=== PATIENT | female | born 1985 | race Caucasian/White ===

== ENCOUNTER 2016-12-08 14:19 | Emergency (ER) | payer BC ==
[2016-12-08 14:34] VITALS: RESP 18
[2016-12-08] MEDS ORDERED: ONDANSETRON 4 MG/2 ML VIAL IVP STA (15:41)
[2016-12-08] MEDS ORDERED: HYDROmorphone 0.5 MG/0.5 ML SYRINGE IVP STA (15:41)
[2016-12-08] MEDS ORDERED: KETOROLAC 30 MG/ML 1 ML VIAL IVP STA (15:41)
[2016-12-08] MEDS ORDERED: SODIUM CHLORIDE 0.9% 1,000 ML IV STA (15:41)
--- NOTE | 2016-12-08 15:50 | ED ---
Abdominal Pain HPI - General Chief Complaint: Abdominal Pain Stated Complaint: Abd Pain Time Seen by Provider: 12/08/16 15:28 Source: patient, RN notes reviewed, old records reviewed Mode of arrival: ambulatory Limitations: no limitations - History of Present Illness Initial Comments: 31-year-old female presents emergency Department chief complaint of right upper quadrant abdominal pain for the past week. She reports that it became progressively worse over the past few days and now it's sharp pain from the right upper quadrant around her back. Patient states that she feels nauseated but denies any specific vomiting. She states that she also has had increased pelvic pressure when urinating. She denies any dysuria or change in urination color. Patient reports that she's had no fever or chills, denies any changes in bowel habits. She reports that she's had a history of gallbladder she's been has never had a removed. She did have an evaluation when she was at some point. Patient states that her last menstrual period was approximately a week ago. Patient denies any vaginal discharge. - Related Data Home Medications Medication Instructions Recorded Confirmed Cholecalciferol (Vitamin D3) 2,000 unit PO DAILY 12/08/16 12/08/16 [Vitamin D3] Norethindrone-E.estradiol-Iron 1 tab PO DAILY 12/08/16 12/08/16 [Loestrin Fe 1-20 Tablet] Omeprazole 20 mg PO DAILY 12/08/16 12/08/16 traZODone HCL 25 mg PO HS 12/08/16 12/08/16 Previous Rx's Medication Instructions Recorded HYDROcodone/APAP 10-325MG [Fitzgerald 1 tab PO Q6H PRN #15 tab 12/08/16 10-325] Ketorolac [Toradol] 10 mg PO Q6HR #15 tab 12/08/16 Ondansetron Odt [Zofran Odt] 4 mg PO Q8HR PRN #15 tab 12/08/16 Tamsulosin [Flomax] 0.4 mg PO DAILY #10 cap 12/08/16 Allergies Allergy/AdvReac Type Severity Reaction Status Date / Time No Known Allergies Allergy Verified 12/08/16 15:47 Review of Systems ROS Statement: Those systems with pertinent positive or pertinent negative responses have been documented in the HPI. ROS Other: All systems not noted in ROS Statement are negative. Past Medical History Past Medical History: Fibromyalgia Additional Past Medical History / Comment(s): NEUROGENIC SYNCOPE History of Any Multi-Drug Resistant Organisms: None Reported Past Surgical History: Adenoidectomy, Breast Surgery, Orthopedic Surgery Additional Past Surgical History / Comment(s): SINUS SURGERY; BREAST REDUCTION; RIGHT KNEE SURGERY; LEFT HAND SURGERY Past Anesthesia/Blood Transfusion Reactions: No Reported Reaction Past Psychological History: No Psychological Hx Reported Smoking Status: Never smoker Past Alcohol Use History: None Reported Past Drug Use History: None Reported - Past Family History Father Family Medical History: No Reported History General Exam - General Exam Comments Initial Comments: 31-year-old female. No acute distress. Limitations: no limitations General appearance: alert, in no apparent distress Head exam: Present: atraumatic, normocephalic, normal inspection Eye exam: Present: normal appearance, PERRL, EOMI. Absent: scleral icterus, conjunctival injection, periorbital swelling ENT exam: Present: normal exam, normal oropharynx, mucous membranes moist Neck exam: Present: normal inspection. Absent: tenderness, meningismus, lymphadenopathy Respiratory exam: Present: normal lung sounds bilaterally. Absent: respiratory distress, wheezes, rales, rhonchi, stridor Cardiovascular Exam: Present: regular rate, normal rhythm, normal heart sounds. Absent: systolic murmur, diastolic murmur, rubs, gallop, clicks GI/Abdominal exam: Present: soft, tenderness (right upper quadrant tenderness.) , normal bowel sounds. Absent: distended, guarding, rebound, rigid Extremities exam: Present: normal inspection, full ROM, normal capillary refill. Absent: tenderness, pedal edema, joint swelling, calf tenderness Back exam: Present: normal inspection Neurological exam: Present: alert Course Vital Signs 12/08/16 12/08/16 14:30 18:28 Temperature 99.4 F 97.8 F Pulse Rate 101 H 89 Respiratory 18 18 Rate Blood Pressure 101/69 105/57 O2 Sat by Pulse 100 Oximetry Medical Decision Making - Medical Decision Making 31-year-old female presents emergency Department chief complaint of right upper quadrant abdominal pain for the past week. She reports that it became progressively worse over the past few days and now it's sharp pain from the right upper quadrant around her back. Patient states that she feels nauseated but denies any specific vomiting. She states that she also has had increased pelvic pressure when urinating. She denies any dysuria or change in urination color. Patient does have significant RUQ and R flank tenderness. Patient lab work was reveiwed and unremarkable. Patient underwent US gallbladder which shows a normal gallbladder, but a 1 cm renal stone with surround hydronephrosis. Patient underwent CT abodmen and pelvis which shows a 1 cm stone in the right inferior pole. Patient UA shows no signs of blood or infection. Discussed that I believe patient pain is related to the renal stone and possibly moving. Discussed following up with urology. She will be discharged with referral to PCP, urology and pain medication. Discussed also placing the patient on flomax as this may aid in her symptom. Patient agrees to treatment plana nd will comply, return parameters discussed. - Lab Data Result diagrams: 12/08/16 15:44 12/08/16 15:44 Lab Results 12/08/16 12/08/16 12/08/16 Range/Units 15:44 15:44 15:44 WBC 12.7 H (3.8-10.6) k/uL RBC 4.98 (3.80-5.40) m/uL Hgb 15.2 (11.4-16.0) gm/dL Hct 45.3 (34.0-46.0) % MCV 91.0 (80.0-100.0) fL MCH 30.5 (25.0-35.0) pg MCHC 33.5 (31.0-37.0) g/dL RDW 11.5 (11.5-15.5) % Plt Count 217 (150-450) k/uL Neutrophils % 72 % Lymphocytes % 22 % Monocytes % 4 % Eosinophils % 1 % Basophils % 1 % Neutrophils # 9.1 H (1.3-7.7) k/uL Lymphocytes # 2.7 (1.0-4.8) k/uL Monocytes # 0.6 (0-1.0) k/uL Eosinophils # 0.1 (0-0.7) k/uL Basophils # 0.1 (0-0.2) k/uL Sodium 140 (137-145) mmol/L Potassium 3.6 (3.5-5.1) mmol/L Chloride 105 (98-107) mmol/L Carbon Dioxide 27 (22-30) mmol/L Anion Gap 8 mmol/L BUN 10 (7-17) mg/dL Creatinine 0.79 (0.52-1.04) mg/dL Est GFR (MDRD) Af Amer >60 (>60 ml/min/1.73 sqM) Est GFR (MDRD) Non-Af >60 (>60 ml/min/1.73 sqM) Glucose 65 L (74-99) mg/dL Calcium 8.7 (8.4-10.2) mg/dL Total Bilirubin 0.6 (0.2-1.3) mg/dL AST 19 (14-36) U/L ALT 39 (9-52) U/L Alkaline Phosphatase 61 (38-126) U/L Total Protein 6.6 (6.3-8.2) g/dL Albumin 3.7 (3.5-5.0) g/dL Amylase 55 (30-110) U/L Lipase 244 (23-300) U/L Urine Color Yellow Urine Appearance Clear (Clear) Urine pH 5.5 (5.0-8.0) Ur Specific [place] 1.017 (1.001-1.035) Urine Protein Negative (Negative) Urine Glucose (UA) Negative (Negative) Urine Ketones Negative (Negative) Urine Blood Negative (Negative) Urine Nitrite Negative (Negative) Urine Bilirubin Negative (Negative) Urine Urobilinogen <2.0 (<2.0) mg/dL Ur Leukocyte Esterase Negative (Negative) - Radiology Data Radiology results: report reviewed US gallbladder shows that the gallbladder is within nomral limits, however An inferior right kidney pole stone seen measuring 1.0 cm. Mild hydronephrosis is seen. Solid contoured deforming mass. CT abdomen without contrast shows Nonobstructing right-sided nephrolithiasis. 8.4 mm nodule in The posterior anterior polar calyx of the right kidney. No hydronephrosis. Left kidney is unremarkable. Disposition Clinical Impression: Right kidney stone Disposition: HOME SELF-CARE Condition: Good Instructions: Renal Colic (ED) Additional Instructions: Patient was up with urologist. Take medications as prescribed. Return to the emergency department if any alarming signs or symptoms occur. Prescriptions: HYDROcodone/APAP 10-325MG [Fitzgerald 10-325] 1 tab PO Q6H PRN #15 tab PRN Reason: Pain Ketorolac [Toradol] 10 mg PO Q6HR #15 tab Ondansetron Odt [Zofran Odt] 4 mg PO Q8HR PRN #15 tab PRN Reason: Nausea Tamsulosin [Flomax] 0.4 mg PO DAILY #10 cap Referrals: Bernard Salter DO [Primary Care Provider] - 1-2 days Kana Sparks MD [STAFF PHYSICIAN] - 1-2 days Time of Disposition: 18:13
[2016-12-08 15:51] LABS: Appearance,Urine Clear (Clear); Basophils # (A) 0.1 k/uL (0-0.2); Basophils % (A) 1 %; Bilirubin,Urine Negative (Negative); CH 30.8; Eosinophils # (A) 0.1 k/uL (0-0.7); Eosinophils % (A) 1 %; Glucose,Urine (UA) Negative (Negative); HCT 45.3 % (34.0-46.0); HDW 2.51; HGB 15.2 gm/dL (11.4-16.0); Ketones,Urine Negative (Negative); Leukocyte Esterase,Urine Negative (Negative); Luc # (Auto) 0.11; Luc % (Auto) 1; Lymphocytes # (A) 2.7 k/uL (1.0-4.8); Lymphocytes % (A) 22 %; MCH 30.5 pg (25.0-35.0); MCHC 33.5 g/dL (31.0-37.0); Mean Platelet Volume 8.2; Monocytes # (A) 0.6 k/uL (0-1.0); Monocytes % (A) 4 %; Neutrophils # (A) 9.1 k/uL (1.3-7.7); Neutrophils % (A) 72 %; Nitrite,Urine Negative (Negative); PH, Urine 5.5 (5.0-8.0); Protein,Urine Negative (Negative); RBC 4.98 m/uL (3.80-5.40); RDW 11.5 % (11.5-15.5); Specific Gravity,Urine 1.017 (1.001-1.035); UA Billing (MACRO vs. MICRO) CHEM; Urobilinogen,Urine <2.0 mg/dL (<2.0); WBC 12.7 k/uL (3.8-10.6); WBC (Perox) 12.08
[2016-12-08 16:06] LABS: ALT 39 U/L (9-52); AST 19 U/L (14-36); Alkaline Phosphatase 61 U/L (38-126); Amylase 55 U/L (30-110); Anion Gap 8 mmol/L; Blood Urea Nitrogen 10 mg/dL (7-17); Calcium 8.7 mg/dL (8.4-10.2); Carbon Dioxide 27 mmol/L (22-30); Chloride 105 mmol/L (98-107); Glucose 65 mg/dL (74-99); Non-African American GFR(MDRD) >60 (>60 ml/min/1.73 sqM); Potassium 3.6 mmol/L (3.5-5.1); Sodium 140 mmol/L (137-145); Total Bilirubin 0.6 mg/dL (0.2-1.3); Total Protein 6.6 g/dL (6.3-8.2)
--- NOTE | 2016-12-08 16:57 | US ---
EXAMINATION TYPE: US gallbladder DATE OF EXAM: 12/08/2016 COMPARISON: NONE CLINICAL HISTORY: Pain. RUQ pain, back pain, nausea, no vomiting EXAM MEASUREMENTS: Liver Length: 13.4 cm Gallbladder Wall: 0.2 cm CBD: 0.7 cm Right Kidney: 11.0 x 4.3 x 4.8 cm Pancreas: wnl Liver: wnl Gallbladder: wnl Evidence for sonographic Garcia's sign: no CBD: upper limits of normal Right Kidney: inferior pole stone seen = 1.0cm mild hydronephrosis is identified. There is solid con tour deforming mass. IMPRESSION: Right-sided nephrolithiasis due to a 1 cm calculus with mild hydronephrosis.
--- NOTE | 2016-12-08 18:01 | CT ---
EXAMINATION TYPE: CT abdomen pelvis wo con DATE OF EXAM: 12/08/2016 COMPARISON: NONE HISTORY: Right flank pain x [address] DLP: 376.10 mGycm Automated exposure control for dose reduction was used. TECHNIQUE: Helical acquisition of images was performed from the lung bases through the pelvis. FINDINGS: LUNG BASES: No significant abnormality is appreciated. LIVER/GB: No significant abnormality is appreciated. PANCREAS: No significant abnormality is seen. SPLEEN: No significant abnormality is seen. ADRENALS: No significant abnormality is seen. KIDNEYS: There is an 8.4 mm nonobstructing calculus in a posterior interpolar calyx of the right kidn ey. There is no hydronephrosis. The left kidney is unremarkable. FREE AIR: No free air is visualized RETROPERITONEAL ADENOPATHY: None visualized REPRODUCTIVE ORGANS: No significant abnormality is seen, uterus is present. URINARY BLADDER: No significant abnormality is seen. PELVIC ADENOPATHY: None visualized. OSSEOUS STRUCTURES: No significant abnormality is seen. BOWEL: No significant abnormality is seen IMPRESSION: NONOBSTRUCTING RIGHT-SIDED NEPHROLITHIASIS.
[2016-12-08] MEDS ORDERED: HYDROmorphone 1 MG/ML 1 ML SYRINGE IVP STA (18:07)
[2016-12-08 18:29] VITALS: BP 105/57; PULSE 89; TEMP 97.8
== END 2016-12-08 18:35 | disposition home or self-care (01) ==
LOC: EC 14:19
DX: N13.2 Hydronephrosis with renal and ureteral calculous obstruction (principal); Z79.3 Long term (current) use of hormonal contraceptives; Z79.899 Other long term (current) drug therapy
CPT/HCPCS: 99285 ×2; 96374 ×2; 96375 ×3; 96376 ×2; 96361 ×3; 36415; 80053; 82150; 83690; 85025; 81003; 76705; 74176; J2405; J1885; J1170 ×2

== ENCOUNTER → 2017-07-31 | Outpatient (CLI) | payer BC ==
--- NOTE | 2017-07-31 10:53 | US ---
EXAMINATION TYPE: US kidneys/renal and bladder DATE OF EXAM: 07/31/2017 COMPARISON: CT abdomen and pelvis December 08, 2016 CLINICAL HISTORY: N20.0 KIDNEY STONE. Hx of right kidney stone with removal in November 2016. EXAM MEASUREMENTS: Right Kidney: 10.7 x 4.9 x 4.5 cm Left Kidney: 11.1 x 5.1 x 5.4 cm Right Kidney: lower pole echogenic focus, nonshadowing = 0.6 x 0.4 cm. Prominent pyramids. Left Kidney: No hydronephrosis or masses seen. Lower pole obscured by overlying bowel gas Bladder: distended, wnl as visualized Bilateral Jets seen There is no evidence for hydronephrosis at this point in time. There is persistent 6 x 4 mm nonshadow ing hyperechoic focus lower pole level right kidney likely reflects residual or new calculus. No mas ses are identified on images saved. The urinary bladder is anechoic. Bilateral ureteral jets are se en. IMPRESSION: Suspect 6 x 4 mm residual or new calculus lower pole level right kidney. No hydronephrosis is noted b ilaterally. Consider CT correlation.
== END | disposition home or self-care (01) ==
LOC: RADUSWWP 10:08
PROVIDERS: ATTEND Surgery
DX: N20.0 Calculus of kidney (principal)
CPT/HCPCS: 76770

== ENCOUNTER → 2017-09-18 | Outpatient (CLI) | payer BC ==
--- NOTE | 2017-09-18 16:17 | US ---
EXAMINATION TYPE: US kidneys/renal and bladder DATE OF EXAM: 09/18/2017 COMPARISON: NONE CLINICAL HISTORY: N20.0 kidney stone. Hx of stone removal x 1 week ago with stent EXAM MEASUREMENTS: Right Kidney: 11.0 x 4.3 x 4.5 cm Left Kidney: 10.9 x 4.5 x 4.9 cm cm Right Kidney: Prominent pyramids seen. Portion of stent visualized. Medial anechoic lesion seen at hilum - 1.7 x 0.9 cm Left Kidney: Prominent pyramids seen Bladder: distended, stent visualized Bilateral Jets seen IMPRESSION: 1. Cyst in the right renal hilum. Hydronephrosis is not identified.
--- NOTE | 2017-09-18 16:28 | XR ---
EXAMINATION TYPE: XR KUB DATE OF EXAM: 09/18/2017 COMPARISON: 12/20/2016 INDICATION: Kidney stone post lithotripsy TECHNIQUE: Single view abdomen frontal projection FINDINGS: There is a normal bowel gas pattern. Psoas margins are normal. No organomegaly is present. Double pigtail stent is present on the right. Normal bowel gas is present. No mass effect is evident. Calcified renal or ureteral stones are not identified. IMPRESSION: 1. Unremarkable Abdomen
== END | disposition home or self-care (01) ==
LOC: RADXRMAIN 13:20
PROVIDERS: ATTEND Surgery
DX: N28.1 Cyst of kidney, acquired (principal); N20.0 Calculus of kidney
CPT/HCPCS: 74018; 76770

== ENCOUNTER → 2018-01-13 | Outpatient (CLI) | payer BC ==
--- NOTE | 2018-01-13 15:44 | US ---
EXAMINATION TYPE: US kidneys/renal and bladder DATE OF EXAM: 01/13/2018 COMPARISON: 09/18/2017 CLINICAL HISTORY: N20.1 Calculus of ureter. personal history of renal stones EXAM MEASUREMENTS: Right Kidney: 10.4 x 4.6 x 5.4 cm Left Kidney: 11.0 x 6.4 x 5.1 cm Post Void Residual Volume: wnl Right Kidney: seen with small non-shadowing 6mm echogenic foci at mid pole Left Kidney: wnl Bladder: wnl Bilateral Jets seen: yes Normal Post Void Residual: yes Comparison: Inferior pole right renal stone appears better visualized currently IMPRESSION: 1. Nonobstructing Nonshadowing renal stones right kidney.
== END ==
LOC: RADUSWWP 13:58
PROVIDERS: ATTEND Surgery
DX: N20.2 Calculus of kidney with calculus of ureter (principal)
CPT/HCPCS: 76770

== ENCOUNTER → 2018-01-26 | Outpatient (CLI) | payer BC ==
[2018-01-27 06:30] LABS: Carbon Dioxide 23.5 mmol/L (21.6-31.8); Phosphorus 3.3 mg/dL (2.4-5.1); Uric Acid 3.3 mg/dL (2.9-7.7)
== END ==
LOC: LABWHC1 16:49
PROVIDERS: ATTEND Surgery
DX: N20.1 Calculus of ureter (principal)
CPT/HCPCS: 36415; 82310; 82374; 82435; 82565; 83970; 84100; 84550

== ENCOUNTER → 2018-01-29 | Outpatient (CLI) | payer BC ==
[2018-01-29 16:26] LABS: Calcium 9.1 mg/dL (8.7-10.3); Carbon Dioxide 25.6 mmol/L (21.6-31.8); Phosphorus 2.4 mg/dL (2.4-5.1)
[2018-01-30 04:11] LABS: Calcium 24 Hour,Urine 853.6 mg/24Hr (100.0-250.0)
[2018-01-30 04:19] LABS: Creatinine 24 Hour,Urine 2.59 g/24Hr (0.80-1.80)
[2018-01-30 04:50] LABS: Uric Acid 24 Hour,Urine 1.06 g/24Hr (0.25-0.75)
== END | disposition home or self-care (01) ==
LOC: LABWHC1 09:09
PROVIDERS: ATTEND Surgery
DX: N20.1 Calculus of ureter (principal)
CPT/HCPCS: 36415; 81050; 82310; 82340; 82374; 82435; 82507; 82565; 82570; 83945; 83970; 84100; 84550; 84560

== ENCOUNTER 2018-08-23 14:29 | Outpatient (CLI) | payer BC ==
[2018-08-23 15:44] VITALS: BP 125/80; PULSE 93; RESP 18; TEMP 98.8
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
== END 2018-08-23 16:13 | disposition home or self-care (01) ==
LOC: FBPOP 14:29
PROVIDERS: ATTEND Obstetrics & Gynecology
DX: O26.853 Spotting complicating pregnancy, third trimester (principal); Z3A.36 36 weeks gestation of pregnancy
CPT/HCPCS: 59025; 99213

== ENCOUNTER 2018-09-11 18:18 | Inpatient (IN) | payer BC ==
[2018-09-11] MEDS ORDERED: TERBUTALINE 1 MG/ML VIAL SQ PRN (20:09)
[2018-09-11] MEDS ORDERED: CARBOPROST TROMETHAMINE 250 MCG/ML 1 ML AMP IM PRN (20:09)
[2018-09-11] MEDS ORDERED: LIDOCAINE 0.5% (PF) 5 MG/ML (50 ML SDV) SQ PRN (20:09)
[2018-09-11] MEDS ORDERED: METHYLERGONOVINE 0.2 MG/ML 1 ML AMP IM PRN (20:09)
[2018-09-11] MEDS ORDERED: OXYTOCIN 10 UNIT/ML 1 ML VIAL IM PRN (20:09)
[2018-09-11] MEDS: LACTATED RINGERS 1,000 ML IV SCH (20:15)
[2018-09-11] MEDS ORDERED: OXYTOCIN 30 UNITS/500 ML NS 30 UNIT in SALINE 1 500ML.BAG IV SCH (20:15)
[2018-09-11] MEDS ORDERED: SUCCINYLCHOLINE CHLORIDE 100 MG/5 ML SYR IV ONE (20:30)
[2018-09-11] MEDS ORDERED: PROPOFOL 10 MG/ML 20 ML VIAL IV ONE (20:30)
[2018-09-11] MEDS ORDERED: ONDANSETRON 4 MG/2 ML VIAL ONE (20:30)
[2018-09-11] MEDS ORDERED: DEXAMETHASONE SOD PHOS (MDV) 100 MG/10 ML VIAL ONE (20:30)
[2018-09-11] MEDS ORDERED: MIDAZOLAM 2 MG/2 ML VIAL ONE (20:30)
[2018-09-11] MEDS ORDERED: HYDROmorphone (PF) 1 MG/ML ONE (20:30)
[2018-09-11] MEDS ORDERED: METHYLERGONOVINE 0.2 MG/ML 1 ML AMP ONE (20:30)
[2018-09-11] MEDS ORDERED: fentaNYL (PF) 50 MCG/ML 2 ML AMP ONE (20:30)
[2018-09-11] MEDS ORDERED: ceFAZolin 1,000 MG VIAL ONE (20:30)
[2018-09-11] MEDS ORDERED: KETOROLAC 30 MG/ML 1 ML VIAL ONE (20:30)
[2018-09-11] MEDS ORDERED: OXYTOCIN 10 UNIT/ML 1 ML VIAL ONE (20:30)
[2018-09-11 21:15] LABS: Basophils % (A) 0 %; Eosinophils % (A) 0 %; HCT 39.1 % (34.0-46.0); HGB 13.2 gm/dL (11.4-16.0); Lymphocytes # (A) 2.9 k/uL (1.0-4.8); Lymphocytes % (A) 24 %; MCH 29.7 pg (25.0-35.0); MCHC 33.7 g/dL (31.0-37.0); Mean Platelet Volume 10.2; Monocytes # (A) 0.6 k/uL (0-1.0); Monocytes % (A) 5 %; Neutrophils # (A) 8.1 k/uL (1.3-7.7); Neutrophils % (A) 68 %; Platelet Count 163 k/uL (150-450); RBC 4.44 m/uL (3.80-5.40); RDW 14.4 % (11.5-15.5); WBC 11.9 k/uL (3.8-10.6)
--- NOTE | 2018-09-11 21:24 | P.HPOB ---
History of Present Illness H&P Date: 09/11/18 Chief Complaint: Strong, regular uterine contractions This is a 33-year-old white female 3 para 2002 EDC 09/18/2018 at 39 weeks gestation. Patient presented to labor and delivery with abdominal pain, starting in the epigastric region. She was monitored in the triage area, and was found to be in active labor. Cervical change was noted, patient was admitted. She denied fluid leakage or vaginal bleeding. Obstetric history is significant for blood type AB+, rubella status immune. Urine culture, hepatitis B surface antigen, HIV testing, gonorrhea and chlamydia cultures, group B strep cultures all negative. One-hour Glucola 116. Past medical history significant for fibromyalgia, and neurocardiogenic syncope. She also has a history of renal lithiasis. Past surgical history adenoidectomy, bilateral breast reduction, breast cyst aspiration of benign pathology, hand surgery, kidney stone removal, knee surgery, and sinus surgery. Current medications vitamins daily, Prevacid 30 mg before meals as needed, Unisom as needed, vitamin B6, Zyrtec 10 mg capsules as needed. ALLERGIES none known. Family history significant for thyroid disease, breast cancer, fibromyalgia, Crohn's disease. Social history patient is , she is a nonsmoker, she denies alcohol or drug use. On exam this is a pleasant white female, she is 5 foot 5-1/2 inches, approximately 210 pounds, vital signs are stable and she is afebrile. The general physical exam is within normal limits. heart rate is consistent with reactive NST. Artificial amniorrhexis reveals clear fluid. Patient cervix is 6-7 cm dilated, 80% effaced, -2 station, vertex presentation. Impression: 39 week intrauterine , advanced maternal age, active labor. Plan: Close maternal and surveillance. Patient is requesting epidural. Anticipate normal spontaneous vaginal delivery. Review of Systems Constitutional: Reports as per HPI Past Medical History Past Medical History: Fibromyalgia Additional Past Medical History / Comment(s): NEUROGENIC SYNCOPE History of Any Multi-Drug Resistant Organisms: None Reported Past Surgical History: Adenoidectomy, Breast Surgery, Orthopedic Surgery Additional Past Surgical History / Comment(s): SINUS SURGERY; BREAST REDUCTION; RIGHT KNEE SURGERY; LEFT HAND SURGERY Past Anesthesia/Blood Transfusion Reactions: No Reported Reaction Smoking Status: Never smoker - Past Family History Father Family Medical History: No Reported History Medications and Allergies Home Medications Medication Instructions Recorded Confirmed Type Magnesium 1 tab PO DAILY 08/23/18 09/11/18 History Pnv No.95/Ferrous Fum/Folic AC 1 each PO DAILY 08/23/18 09/11/18 History [ Multivitamin Tablet] Ranitidine HCl 1 tab PO DAILY 09/11/18 09/11/18 History Allergies Allergy/AdvReac Type Severity Reaction Status Date / Time No Known Allergies Allergy Verified 09/11/18 18:33 Exam Intake and Output 09/11/18 09/11/18 09/11/18 06:59 14:59 22:59 Other: Weight 92.079 kg See dictation under HPI please Results Result Diagrams: 09/11/18 20:14 Abnormal Lab Results - Last 24 Hours (Table) 09/11/18 Range/Units 20:14 WBC 11.9 H (3.8-10.6) k/uL Neutrophils # 8.1 H (1.3-7.7) k/uL Assessment and Plan Assessment: 39 week intrauterine , active spontaneous labor. Advanced maternal age. Plan: Patient is requesting epidural. Close maternal and surveillance. Anticipate normal spontaneous vaginal delivery. Time with Patient: Less than 30
[2018-09-11] MEDS ORDERED: NALOXONE 0.4 MG/ML 1 ML VIAL IV PRN (21:31)
--- NOTE | 2018-09-11 21:31 | P.OP ---
Date of Procedure: 09/11/18 Preoperative Diagnosis: 39 week intrauterine , advanced maternal age, prolapsed umbilical cord. Postoperative Diagnosis: Same, liveborn female infant, nuchal cord 1, low lying anterior placenta with delivery of fetus through the placenta, true knot in the cord 1. Procedure(s) Performed: Stat primary low transverse section Anesthesia: ARELIS Surgeon: Tamiko Michaels Veterinarian Poultry #1: Junior Coughlin Estimated Blood Loss (ml): 500 IV fluids (ml): 500 Urine output (ml): 200 Pathology: other (Placenta) Condition: stable Disposition: PACU Indications for Procedure: Prolapsed umbilical cord Description of Procedure: At the bedside cervical examination was performed. Patient was noted to be 9 cm dilated, vertex presentation, with prolapsed umbilical cord at 3:00. Patient was instructed to push, and I attempted to have her push past the cord as pressure was placed on the cord in an attempt to slip it over the 's head. This attempt was unsuccessful, therefore the decision was made to proceed with STAT section. Nurse on the bed rode with the patient to the operating room, elevating the head to avoid cord compression. Patient is placed in the do rsal supine position, Ren[place] catheter placed, 2 g of Ancef given. The appropriate timeout is performed to assure proper patient and procedural identification. The abdomen is prepped and draped in usual sterile fashion. A low transverse skin incision is made in this is carried down through the subcutaneous tissue to the fascia. Fascia is isolated, scored, extended bilaterally with curved Whitehead scissors. Peritoneum is next identified and incised, there is no bowel or bladder involvement. Bladder blade is placed over the dome of the bladder. A low transverse uterine incision is made. Upon e ntering the uterine cavity, the placenta was encountered. The incision was made through the placenta, and the infant's head was delivered through the placenta as well. There was a nuchal cord 1, along with a true knot in the umbilical cord. Patient was delivered of a liveborn female infant at 2040 hours. Umbilical cord was doubly clamped and ligated, she was handed to the waiting team where scores of 24 and 8 at one and 5 and 10 minutes were given. weighed 7 lbs. 12 oz. or 3520 g. The uterus is externalized after the placenta is delivered and sent to pathology. The uterus is wiped clean with a sterile sponge to avoid any retained products of conception. Edges of the incision are grasped with Pittman clamps. Uterus is closed in a two- step fashion, first layer running locking, second layer imbricated for excellent reapproximation and hemostasis. Bilateral tubes and ovaries are inspected and noted to be normal. Abdomen is suctioned with suction on guard and the uterus is gently placed back into the abdominal cavity. Bilateral gutters are inspected and cleaned. The peritoneum was allowed to close by secondary intention. The fascia is closed in a running stitch of 0 Vicryl with over ligation in the midline. Subcutaneous tissue is irrigated, noted to be clean and dry. It is reapproximated with a running 2-0 Vicryl. 3-0 Vicryl in a subcuticular manner is used for final skin closure. Steri-Strips and Mastisol are applied to the wound. Patient is brought back to the recovery room in very good condition with stable vital signs including a pulse of 92, respirations 12, blood pressure 98/58. [place] is noted to be draining clear urine upon completion of procedure.
[2018-09-11] MEDS ORDERED: KETOROLAC 30 MG/ML 1 ML VIAL IVP PRN (21:32)
[2018-09-11] MEDS ORDERED: ONDANSETRON 4 MG/2 ML VIAL IVP PRN (21:32)
[2018-09-11] MEDS ORDERED: METOCLOPRAMIDE 5 MG/ML 2 ML VIAL IVP PRN (21:32)
[2018-09-11] MEDS: HYDROmorphone PCA 10 MG/50 ML BAG IV PRN (22:18)
[2018-09-11] MEDS: diphenhydrAMINE 50 MG/ML 1 ML VIAL IVP PRN (23:39)
[2018-09-12] MEDS: LACTATED RINGERS 1,000 ML IV SCH ×2 (01:23→14:29)
[2018-09-12 04:25] VITALS: BMI 32.8
[2018-09-12] MEDS: HYDROmorphone PCA 10 MG/50 ML BAG IV PRN (04:32)
[2018-09-12] MEDS: diphenhydrAMINE 50 MG/ML 1 ML VIAL IVP PRN (06:08)
[2018-09-12 07:59] LABS: Basophils % (A) 0 %; Eosinophils % (A) 0 %; HCT 36.3 % (34.0-46.0); HGB 11.8 gm/dL (11.4-16.0); Lymphocytes # (A) 1.7 k/uL (1.0-4.8); Lymphocytes % (A) 9 %; MCH 29.3 pg (25.0-35.0); MCHC 32.5 g/dL (31.0-37.0); MCV 90.3 fL (80.0-100.0); Mean Platelet Volume 9.7; Monocytes # (A) 0.5 k/uL (0-1.0); Monocytes % (A) 3 %; Neutrophils # (A) 16.7 k/uL (1.3-7.7); Neutrophils % (A) 88 %; Platelet Count 155 k/uL (150-450); RBC 4.02 m/uL (3.80-5.40); RDW 14.2 % (11.5-15.5); WBC 19.1 k/uL (3.8-10.6)
--- NOTE | 2018-09-12 10:02 | P.PN ---
Subjective Progress Note Date: 09/12/18 Principal diagnosis: Postoperative day #1 Slept well. Pain well managed. No complaints. Minimal to moderate lochia rubra. Objective - Vital Signs Vital signs: Vital Signs Temp 98 F 09/12/18 08:00 Pulse 80 09/12/18 08:00 Resp 16 09/12/18 08:00 BP 121/71 09/12/18 08:00 Pulse Ox 99 09/12/18 08:00 Intake & Output 09/11/18 09/12/18 09/12/18 18:59 06:59 18:59 Output Total 550 Balance -550 Weight 92.079 kg Output: Urine 550 Other: Voiding Method Indwelling Catheter - Constitutional General appearance: Present: average body habitus, cooperative - EENT Eyes: Present: PERRLA ENT: Present: hearing grossly normal - Neck Neck: Present: normal ROM Thyroid: bilateral: normal size - Respiratory Respiratory: bilateral: CTA - Cardiovascular Rhythm: regular - Gastrointestinal General gastrointestinal: Present: normal bowel sounds - Integumentary Integumentary Comment(s): Skin incision clean and dry, well approximated, Steri-Strips applied. Fundus firm, midline, symmetric, 18 week size. Integumentary: Present: normal - Neurologic Neurologic: Present: CNII-XII intact - Musculoskeletal Musculoskeletal: Present: gait normal, strength equal bilaterally - Psychiatric Psychiatric: Present: A&O x's 3, appropriate affect, intact judgment & insight - Labs CBC & Chem 7: 09/12/18 07:21 Labs: Abnormal Lab Results - Last 24 Hours (Table) 09/11/18 09/12/18 Range/Units 20:14 07:21 WBC 11.9 H 19.1 H (3.8-10.6) k/uL Neutrophils # 8.1 H 16.7 H (1.3-7.7) k/uL Assessment and Plan Assessment: Doing well postoperative day #1. Hemoglobin stable at 11.8. Plan: Continue care. Advanced diet and activity. Time with Patient: Less than 30
[2018-09-12] MEDS: HYDROcodone/APAP 5-325MG 1 EACH TAB PO PRN ×3 (12:36→21:51)
[2018-09-12] MEDS: IBUPROFEN 600 MG TAB PO PRN ×2 (15:54→23:10)
[2018-09-12] MEDS: SIMETHICONE 80 MG CHEWABLE PO PRN ×2 (20:11→23:10)
[2018-09-12] MEDS: ZOLPIDEM 5 MG TAB PO PRN (23:10)
[2018-09-13] MEDS: HYDROcodone/APAP 5-325MG 1 EACH TAB PO PRN ×3 (02:35→17:01)
[2018-09-13] MEDS: IBUPROFEN 600 MG TAB PO PRN ×3 (05:41→20:10)
[2018-09-13] MEDS: SIMETHICONE 80 MG CHEWABLE PO PRN ×3 (08:15→20:10)
--- NOTE | 2018-09-13 10:21 | P.PN ---
Subjective Progress Note Date: 09/13/18 Principal diagnosis: Postoperative day #2, doing well. Positive flatus. Urinating and ambulating without difficulties. Pain well controlled. Objective - Vital Signs Vital signs: Vital Signs Temp 98.5 F 09/12/18 23:53 Pulse 80 09/12/18 23:53 Resp 14 09/12/18 23:53 BP 116/66 09/12/18 23:53 Pulse Ox 100 09/12/18 23:53 Intake & Output 09/12/18 09/13/18 09/13/18 18:59 06:59 18:59 Output Total 300 Balance -300 Output: Urine 300 - Constitutional General appearance: Present: average body habitus, cooperative - EENT Eyes: Present: PERRLA ENT: Present: hearing grossly normal - Neck Thyroid: bilateral: normal size - Respiratory Respiratory: bilateral: CTA - Cardiovascular Rhythm: regular - Gastrointestinal Gastrointestinal Comment(s): Incision clean and dry, intact, Steri-Strips applied. Uterus firm, midline, symmetric, mobile, nontender, 18 week size General gastrointestinal: Present: normal bowel sounds - Integumentary Integumentary: Present: normal, normal turgor - Neurologic Neurologic: Present: CNII-XII intact - Musculoskeletal Musculoskeletal: Present: gait normal, strength equal bilaterally - Psychiatric Psychiatric: Present: A&O x's 3, appropriate affect, intact judgment & insight - Labs CBC & Chem 7: 09/12/18 07:21 Assessment and Plan Assessment: Doing well postoperative day #2 Plan: Continue postoperative care, likely discharge home tomorrow. Time with Patient: Less than 30
[2018-09-13] MEDS: SENNOSIDES-DOCUSATE SODIUM 1 EACH TAB PO SCH (20:22)
[2018-09-13] MEDS: ZOLPIDEM 5 MG TAB PO PRN (22:23)
[2018-09-14] MEDS: HYDROcodone/APAP 5-325MG 1 EACH TAB PO PRN ×4 (00:37→22:50)
[2018-09-14] MEDS: IBUPROFEN 600 MG TAB PO PRN ×3 (06:24→19:55)
--- NOTE | 2018-09-14 08:39 | P.PNOBGPC ---
Subjective - Subjective Patient reports: Reports appetite normal, Reports voiding normally, Reports pain well controlled, Reports ambulating normally : doing well, in NICU Objective - Vital Signs Latest vital signs: Vital Signs Temp Pulse Resp BP Pulse Ox 09/14/18 00:00 98.5 F 83 18 123/75 100 09/13/18 16:00 99.1 F 88 18 122/74 99 - Exam Extremities: Present: normal Abdomen: Present: normal appearance, soft. Absent: distention, tenderness Incision: Present: normal, dry, intact Uterus: Present: normal, firm (The uterine fundus is tonic and nontender just below the umbilicus.) Assessment and Plan (1) S/P section Current Visit: Yes Status: Acute Code(s): Z98.891 - HISTORY OF UTERINE SCAR FROM PREVIOUS SURGERY SNOMED Code(s): 417443985 Plan: Continue routine care as the remains and special care nursery for ongoing observation. I would anticipate discharge home tomorrow regardless of status and assuming no maternal complications. I strongly encouraged continued ambulation in the hallways routinely.
[2018-09-14] MEDS: SENNOSIDES-DOCUSATE SODIUM 1 EACH TAB PO SCH (09:01)
--- NOTE | 2018-09-14 09:43 | XR ---
Abdomen HISTORY: On confirmed surgical count Frontal view of the abdomen on 2 images Correlation to prior exam 09/18/2017 Double-J stent on the right has been removed. Pubic symphysis shows some mild diastases. No radiopaqu e foreign body. Lung bases are clear. No evident bowel obstruction or pneumoperitoneum. IMPRESSION: No radiopaque foreign body.
[2018-09-15] MEDS: SENNOSIDES-DOCUSATE SODIUM 1 EACH TAB PO SCH ×2 (04:12→08:00)
[2018-09-15] MEDS: HYDROcodone/APAP 5-325MG 1 EACH TAB PO PRN ×2 (04:18→15:01)
--- NOTE | 2018-09-15 08:41 | P.DS ---
Providers Date of admission: 09/11/18 20:07 Expected date of discharge: 09/15/18 Attending physician: Martin Lepe Primary care physician: Martin Lepe - Discharge Diagnosis(es) (1) S/P section Current Visit: Yes Status: Acute Hospital Course: The patient is a 33-year-old 3 para 2001 admitted to the hospital in early labor with all signs reassuring. She began making fairly rapid progress and progressed to approximately 9 cm at which time she underwent artificial rupture of membranes and had a significant cord prolapse into the vagina. She was unable to push past the small amount of cervix that remained and was taken the operating room emergently where she underwent emergency primary low- transverse section was delivered of a viable 7 lbs. 12 oz. baby girl with Apgars of 2 at 1 minute for at 5 minutes and 8 at 10 minutes. Her postoperative course was unremarkable with vital signs remaining stable and her temperature was afebrile throughout. She was deemed stable for discharge on postoperative day #4 as the infant remained in the hospital and still remains in the hospital for prophylactic treatment for possible aspiration pneumonia. She was discharged to follow-up in the office in 2 weeks for an incision check and 6 weeks routinely. Discharge instructions included calling for any significantly increased bleeding or foul-smelling lochia, significantly increased fever abdominal pain, perineal complaints, breast complaints, incisional complaints, or anything else that concerned her. She is additionally instructed to have nothing in the vagina for at least 6 weeks time to include intercourse and to abstain from any heavy lifting over the same period of time. She was last instructed to do no driving until off of all pain medications or 2 weeks' time, whichever came first. She understood all of her instructions and agrees to follow up as noted above. Discharge medications included a prescription for Tylenol No. 3, 1-2 by mouth every 6 hours when necessary pain, #20 dispensed with no refills. She was otherwise to use [id number] analgesic pain medications as needed. Maternal blood type is AB+ and rubella status is immune. Discharge hemoglobin and hematocrit were 11.8 and 36.3 respectively. Procedures: #1. Artificial rupture of membranes #2. Emergency primary low-transverse section Patient Condition at Discharge: Good Plan - Discharge Summary New Discharge Prescriptions: No Action Pnv No.95/Ferrous Fum/Folic AC [ Multivitamin Tablet] 1 each PO DAILY Magnesium 1 tab PO DAILY Ranitidine HCl 1 tab PO DAILY Discharge Medication List Magnesium 1 tab PO DAILY 08/23/18 [History] Pnv No.95/Ferrous Fum/Folic AC [ Multivitamin Tablet] 1 each PO DAILY 08/23/18 [History] Ranitidine HCl 1 tab PO DAILY 09/11/18 [History] Follow up Appointment(s)/Referral(s): Martin Lepe MD [Primary Care Provider] - 2 Weeks Discharge Disposition: HOME SELF-CARE
[2018-09-15] MEDS: IBUPROFEN 600 MG TAB PO PRN ×2 (11:12→18:01)
[2018-09-15 12:50] VITALS: BP 124/75; PULSE 73; RESP 18; TEMP 98.9
== END 2018-09-15 18:15 | disposition home or self-care (01) | DRG 787 ==
LOC: FBPOP 18:18 → 4FBP 20:07
PROVIDERS: ADMIT Obstetrics & Gynecology; ATTEND Obstetrics & Gynecology
PROC: 10D00Z1 Extraction of Products of Conception, Low, Open Approach (ICD-10-PCS; principal; 2018-09-11 21:30)
DX: O69.0XX0 Labor and delivery complicated by prolapse of cord, not applicable or unspecified (principal); O44.43 Low lying placenta NOS or without hemorrhage, third trimester; O69.2XX0 Labor and delivery complicated by other cord entanglement, with compression, not applicable or unspecified; O69.81X0 Labor and delivery complicated by cord around neck, without compression, not applicable or unspecified; O99.89 Other specified diseases and conditions complicating pregnancy, childbirth and the puerperium; M79.7 Fibromyalgia; Z37.0 Single live birth; Z3A.39 39 weeks gestation of pregnancy; Z87.442 Personal history of urinary calculi; Z80.3 Family history of malignant neoplasm of breast; Z83.49 Family history of other endocrine, nutritional and metabolic diseases; Z83.79 Family history of other diseases of the digestive system; Z82.69 Family history of other diseases of the musculoskeletal system and connective tissue
CPT/HCPCS: 59025; 74018; 82803; 85025; 86850; 86900; 86901; 88307; 99213

== ENCOUNTER → 2018-11-10 | Outpatient (CLI) | payer BC ==
--- NOTE | 2018-11-11 04:33 | CT ---
EXAMINATION TYPE: CT abdomen pelvis wo con DATE OF EXAM: 11/10/2018 COMPARISON: 12/08/2016 and renal ultrasound 01/13/2018 HISTORY: 33-year-old female Follow up abnormal US showing probable renal stones. CT DLP: 890 mGycm. Automated exposure control for dose reduction was used. TECHNIQUE: Contiguous axial scanning of the abdomen and pelvis without IV contrast. Coronal and sagit suman reconstructions performed. FINDINGS: Pectus excavatum. Heart normal size without pericardial effusion. Lung bases clear without pleural ef fusion. Noncontrast appearance of the liver, gallbladder, adrenal glands, left kidney, spleen, and pancreas s how no gross abnormality. Lack of IV contrast limits assessment of the solid abdominal viscera. A couple punctate 2 to 3 mm calculi are present in the right kidney. The previously seen larger 8 mm calculus on 12/08/2016 is no longer identified. No hydronephrosis. No dilated small bowel, free fluid, or free air. Scattered nonenlarged mesenteric lymph nodes are noted. Cecum hangs low in the anterior pelvis. Appendix not clearly identified. Moderate overall stool burde n. No pericolonic inflammatory change. Bladder not distended. Uterus is anteverted. The region of both ovaries are visualized. Pelvic phlebo liths. A tampon is in place obliqued towards the left. Suspect a scar. No abnormal fluid co llection in the pelvis. Bones: No osseous destructive process. IMPRESSION: 1. A couple punctate 2 to 3 mm calculi within the right kidney. No hydronephrosis. 2. Moderate stool burden.
== END | disposition home or self-care (01) ==
LOC: RADCTMAIN 13:20
PROVIDERS: ATTEND Surgery
DX: N20.0 Calculus of kidney (principal)
CPT/HCPCS: 74176

== ENCOUNTER → 2019-12-24 | Outpatient (CLI) | payer BC ==
--- NOTE | 2019-12-25 15:50 | US ---
EXAMINATION TYPE: US kidneys/renal and bladder DATE OF EXAM: 12/24/2019 COMPARISON: CT abdomen pelvis 11/10/2018 CLINICAL HISTORY: N20.0 Calculus of kidney. History of kidney stones EXAM MEASUREMENTS: Right Kidney: 10.3 x 4.3 x 4.8 cm Left Kidney: 10.7 x 4.8 x 4.3 cm Right Kidney: no evidence of hydronephrosis Left Kidney: no evidence of hydronephrosis Bladder: appears wnl Bilateral Jets seen: yes There is no evidence for hydronephrosis at this point in time. No nephrolithiasis is seen. No david s are identified. The urinary bladder is anechoic. Bilateral ureteral jets are seen. IMPRESSION: No nephrolithiasis seen.
== END | disposition home or self-care (01) ==
LOC: RADUSWWP 16:11
PROVIDERS: ATTEND Family Medicine
DX: N20.0 Calculus of kidney (principal)
CPT/HCPCS: 76770

== ENCOUNTER → 2021-03-16 | Outpatient (CLI) | payer BC ==
--- NOTE | 2021-03-19 11:11 | MM ---
Reason for exam: screening (asymptomatic). Last mammogram was performed 8 years and 2 months ago. History: Family history of breast cancer in maternal grandfather at age 50 and breast cancer in paternal grandmother at age 60. Benign left breast aspiration of the left breast, January 21, 2013. Reductions of both breasts, 2001. Physical Findings: A clinical breast exam by your physician is recommended on an annual basis and results should be correlated with mammographic findings. MG Screening Mammo w CAD Bilateral CC and MLO view(s) were taken. Prior study comparison: January 21, 2013, left breast digital mammogram. January 13, 2013, CAD bilateral diagnostic mammogram. There are scattered fibroglandular densities. There is chronic nodularity in the left breast centrally though smaller now. Stable anterior superior right MLO asymmetric density. No significant changes when compared with prior studies. ASSESSMENT: Benign, BI-RAD 2 RECOMMENDATION: Routine screening mammogram of both breasts in 1 year.
== END | disposition home or self-care (01) ==
LOC: RADMAMWWP 14:18
PROVIDERS: ATTEND Obstetrics & Gynecology
DX: Z12.31 Encounter for screening mammogram for malignant neoplasm of breast (principal); Z80.3 Family history of malignant neoplasm of breast
CPT/HCPCS: 77067

== ENCOUNTER → 2022-07-29 | Outpatient (CLI) | payer BC ==
--- NOTE | 2022-07-30 12:05 | CA ---
Transthoracic Echo Report Name: Tamiko Baer Age: 37 Gender: F : 1985 Exam Date: 07/29/2022 14:32 Exam Location: [facility] Ht (in): 66 Wt (lb): 180 Ordering Physician: Bernard Salter DO Attending/Referring Phys: Programmer [employer] Marleen Lopez RDCS Procedure CPT: Indications: R06.02 R21 M79.604 M79.605 Cardiac Hx: Technical Quality: Good Contrast 1: Total Dose (mL): Contrast 2: Total Dose (mL): MEASUREMENTS (Male / Female) Normal Values 2D ECHO LV Diastolic Diameter PLAX 4.5 cm 4.2 - 5.9 / 3.9 - 5.3 cm LV Systolic Diameter PLAX 2.8 cm IVS Diastolic Thickness 0.7 cm 0.6 - 1.0 / 0.6 - 0.9 cm LVPW Diastolic Thickness 0.8 cm 0.6 - 1.0 / 0.6 - 0.9 cm LV Relative Wall Thickness 0.3 RV Internal Dim ED PLAX 2.6 cm LA Systolic Diameter LX 2.9 cm 3.0 - 4.0 / 2.7 - 3.8 cm LV Diastolic Volume MOD 4C 120.6 cm??? LV Systolic Volume MOD 4C 57.5 cm??? LV Ejection Fraction MOD 4C 52.3 % LV Diastolic Length 4C 9.3 cm LV Systolic Length 4C 7.6 cm LV Diastolic Volume MOD 2C 127.5 cm??? LV Systolic Volume MOD 2C 54.9 cm??? LV Ejection Fraction MOD 2C 56.9 % LV Diastolic Length 2C 9.6 cm LV Systolic Length 2C 7.8 cm LA Volume 29.9 cm??? 18 - 58 / 22 - 52 cm??? M-MODE Aortic Root Diameter MM 2.8 cm MV E Point Septal Separation 0.5 cm AV Cusp Separation MM 2.2 cm DOPPLER AV Peak Velocity 124.9 cm/s AV Peak Gradient 6.2 mmHg MV Area PHT 5.2 cm??? Mitral E Point Velocity 81.1 cm/s Mitral A Point Velocity 48.4 cm/s Mitral E to A Ratio 1.7 MV Deceleration Time 145.9 ms MV E' Velocity 11.3 cm/s Mitral E to MV E' Ratio 7.2 TR Peak Velocity 194.0 cm/s TR Peak Gradient 15.0 mmHg Right Ventricular Systolic Press 20.0 mmHg FINDINGS Left Ventricle Left ventricular ejection fraction is estimated at 55-60 %. Left ventricular cavity size normal. Left ventricular wall thickness normal. Right Ventricle Normal right ventricular size and function. Right ventricular systolic pressure within normal limits. Right Atrium Normal right atrial size. Left Atrium Normal left atrial size. Mitral Valve Structurally normal mitral valve. Trace mitral regurgitation. Aortic Valve Trileaflet aortic valve. No aortic valve stenosis or regurgitation. Tricuspid Valve Structurally normal tricuspid valve. Trace to mild tricuspid regurgitation. Pulmonic Valve Structurally normal pulmonic valve. No pulmonic regurgitation. Pericardium Normal pericardium. No pericardial effusion. Aorta Normal size aortic root and proximal ascending aorta. CONCLUSIONS 1. Normal left ventricle size and systolic function 2. Trace mitral with trace to mild tricuspid regurgitation and normal right- sided pressure Previewed by: Dr. Tyson Tejeda MD (Electronically Signed) Final Date: 30 July 2022 12:04
== END | disposition home or self-care (01) ==
LOC: RADECHMAIN 14:29
PROVIDERS: ATTEND Family Medicine
DX: I08.1 Rheumatic disorders of both mitral and tricuspid valves (principal); M79.604 Pain in right leg; M79.605 Pain in left leg; R21 Rash and other nonspecific skin eruption; R06.02 Shortness of breath
CPT/HCPCS: 93306

== ENCOUNTER → 2023-04-04 | Outpatient (CLI) | payer BC ==
--- NOTE | 2023-04-07 19:46 | MM ---
Reason for Exam: Screening (asymptomatic). Last mammogram was performed 2 year(s) and 1 month(s) ago. Patient History: Menarche at age 10. First Full-Term at age 27. Patient has history of breast feeding. 2001, Bilateral Reduction. 01/21/2013, Benign Cyst Aspiration on the left side. Paternal grandmother had breast cancer, age 60. Maternal grandfather had breast cancer, age 50. Last menstrual period: 03/28/2023 Risk Values: Shaniqua 5 year model risk: 0.6%. NCI Lifetime model risk: 11.1%. Prior Study Comparison: 01/13/2013 Bilateral Diagnostic Mammogram, [facility]. 01/21/2013 Left Diagnostic Mammogram, [facility]. 03/16/2021 Bilateral Screening Mammogram, [facility]. Tissue Density: There are scattered fibroglandular densities. Findings: Analyzed By CAD. In the left breast, 5 to 6:00 position, nodularity at a middle depth has become more defined. Further evaluation is recommended. Otherwise, no significant change. Overall Assessment: Incomplete: need additional imaging evaluation, BI-RAD 0 Management: Special View Mammogram of the left breast. Diagnostic Breast Ultrasound of the left breast. . [facility] will attempt to contact patient to return for supplemental views and ultrasound if indicated. Electronically signed and approved by: Radha Bustillos M.D. Radiologist
== END | disposition home or self-care (01) ==
LOC: RADMAMWWP 15:53
PROVIDERS: ATTEND Obstetrics & Gynecology
DX: Z12.31 Encounter for screening mammogram for malignant neoplasm of breast (principal); Z80.3 Family history of malignant neoplasm of breast
CPT/HCPCS: 77063; 77067

== ENCOUNTER → 2023-04-16 | Outpatient (CLI) | payer BC ==
--- NOTE | 2023-04-16 09:06 | MM ---
Reason for Exam: Additional evaluation requested from abnormal screening. Last screening mammogram was performed less than 1 month ago. Patient History: Menarche at age 10. First Full-Term at age 27. Patient has history of breast feeding. 2001, Bilateral Reduction. 01/21/2013, Benign Cyst Aspiration on the left side. Paternal grandmother had breast cancer, age 60. Maternal grandfather had breast cancer, age 50. Risk Values: Shaniqua 5 year model risk: 0.6%. NCI Lifetime model risk: 11.1%. Prior Study Comparison: 01/21/2013 Left Diagnostic Mammogram, [facility]. 03/16/2021 Bilateral Screening Mammogram, [facility]. 04/04/2023 Bilateral MG 3D screening mammo w/cad, [facility]. Tissue Density: Left: There are scattered fibroglandular densities. Findings: Analyzed By CAD. The pattern is symmetrical. Under compression there is persistent on a couple of nodular densities in the left breast. The larger 0.7 cm nodule is 5 cm from the nipple. A smaller 0.4 cm nodular density in the lower-outer quadrant anterior mid left breast 5 cm from the nipple. Ultrasound of the lower outer quadrant left breast is recommended. Overall Assessment: Incomplete: need additional imaging evaluation, BI-RAD 0 Management: Diagnostic Breast Ultrasound of the left breast. A negative mammogram report should not preclude additional follow up of suspicious palpable abnormalities. Patient should continue monthly self breast exam. A clinical breast exam by your physician is recommended on an annual basis and results should be correlated with mammographic findings. Electronically signed and approved by: Bolivar Navarro D.O. Radiologis
--- NOTE | 2023-04-16 20:41 | USB ---
Patient History: Menarche at age 10. First Full-Term at age 27. Patient has history of breast feeding. 2001, Bilateral Reduction. 01/21/2013, Benign Cyst Aspiration on the left side. Paternal grandmother had breast cancer, age 60. Maternal grandfather had breast cancer, age 50. Risk Values: Shaniqua 5 year model risk: 0.6%. NCI Lifetime model risk: 11.1%. Technique: Method: Targeted. Prior Study Comparison: 01/21/2013 Left Diagnostic Mammogram, [facility]. 03/16/2021 Bilateral Screening Mammogram, [facility]. 04/04/2023 Bilateral MG 3D screening mammo w/cad, [facility]. Findings: The lateral section of the breast of the left breast and the retroareolar of both breasts were scanned. 5:00 position 5 cm from the nipple there is a oval hypoechoic area may be small cyst measuring 0.5 x 0.3 x 0.5 cm. This may correlate with the mammographic finding. Six-month follow-up is recommended. At the 4:00 position 5 cm from the nipple there is a simple appearing cyst measuring 0.3 x 0.4 x 0.3 cm. This may correlate with the mammographic finding. Six-month follow-up recommended. Overall Assessment: Probably benign, BI-RAD 3 Management: Diagnostic Mammogram of the left breast in 6 months. Diagnostic Breast Ultrasound of the left breast in 6 months. A clinical breast exam by your physician is recommended on an annual basis and results should be correlated with mammographic findings. This exam should not preclude additional follow-up of suspicious palpable abnormalities. Results were given to the patient verbally at the time of exam. Electronically signed and approved by: Bolivar Navarro D.O. Radiologis
== END | disposition home or self-care (01) ==
LOC: RADMAMWWP 08:20
PROVIDERS: ATTEND Obstetrics & Gynecology
DX: R92.322 Mammographic fibroglandular density, left breast (principal); Z80.3 Family history of malignant neoplasm of breast
CPT/HCPCS: 77061; 77065

== ENCOUNTER → 2023-06-25 | Outpatient (CLI) | payer BC ==
--- NOTE | 2023-06-25 14:53 | USB ---
Reason for Exam: Clinical finding. Patient History: Menarche at age 10. First Full-Term at age 27. Premenopausal. Patient has history of breast feeding. Currently using Hormonal Contraceptives, starting at age 14. 2001, Bilateral Reduction. 01/21/2013, Benign Cyst Aspiration on the left side. Paternal grandmother had breast cancer, age 60. Maternal grandfather had breast cancer, age 50. Risk Values: Shaniqua 5 year model risk: 0.6%. NCI Lifetime model risk: 11.1%. Technique: Method: Targeted. Prior Study Comparison: 03/16/2021 Bilateral Screening Mammogram, [facility]. 04/04/2023 Bilateral MG 3D screening mammo w/cad, [facility]. 04/16/2023 Left MG 3D work up w/cad , [facility]. Findings: The lower outer quadrant of the left breast, the axilla of the left breast and the retroareolar of the left breast were scanned. Targeted ultrasound lower outer quadrant of the left breast 3:00 to 6:00 including scanning of the subareolar region and axilla. At the 6:00 position, there is a complex versus septated cyst measuring 8 x 7 x 4 mm. Previously measured at the 5:00 position as 5 mm. As no obvious enlarging mammographic finding is seen and given the suspected benign etiology, recommend ongoing short interval follow-up. Overall Assessment: Probably benign, BI-RAD 3 Management: Diagnostic Mammogram of the left breast in 3 months. Diagnostic Breast Ultrasound of the left breast in 3 months. Total six-month follow-up left breast. Further clinical management of patient's left breast pain. A clinical breast exam by your physician is recommended on an annual basis and results should be correlated with mammographic findings. This exam should not preclude additional follow-up of suspicious palpable abnormalities. Results were given to the patient verbally at the time of exam. Electronically signed and approved by: Radha Bustillos M.D. Radiologist
--- NOTE | 2023-06-25 15:51 | MM ---
Reason for Exam: Clinical finding. Last screening mammogram was performed 3 month(s) ago. Patient History: Menarche at age 10. First Full-Term at age 27. Premenopausal. Patient has history of breast feeding. Currently using Hormonal Contraceptives, starting at age 14. 2001, Bilateral Reduction. 01/21/2013, Benign Cyst Aspiration on the left side. Paternal grandmother had breast cancer, age 60. Maternal grandfather had breast cancer, age 50. Risk Values: Shaniqua 5 year model risk: 0.6%. NCI Lifetime model risk: 11.1%. Prior Study Comparison: 03/16/2021 Bilateral Screening Mammogram, [facility]. 04/04/2023 Bilateral MG 3D screening mammo w/cad, [facility]. 04/16/2023 Left MG 3D work up w/cad , [facility]. Tissue Density: Left: There are scattered areas of fibroglandular density. Findings: Analyzed By CAD. The low density asymmetry inferior MLO view that is being followed appears similar. The low-density favors a benign etiology. Ongoing follow-up recommended. No significant change otherwise seen. Overall Assessment: Incomplete: need additional imaging evaluation, BI-RAD 0 Management: Diagnostic Breast Ultrasound of the left breast. For patient's pain. Electronically signed and approved by: Radha Bustillos M.D. Radiologist
== END | disposition home or self-care (01) ==
LOC: RADMAMWWP 13:26
PROVIDERS: ATTEND Obstetrics & Gynecology
DX: R92.322 Mammographic fibroglandular density, left breast (principal); N63.20 Unspecified lump in the left breast, unspecified quadrant; Z80.3 Family history of malignant neoplasm of breast
CPT/HCPCS: 77061; 77065

== ENCOUNTER → 2024-09-07 | Outpatient (CLI) | payer BC ==
--- NOTE | 2024-09-07 12:03 | MM ---
Reason for Exam: Screening (asymptomatic). Last mammogram was performed 1 year(s) and 5 month(s) ago. Patient History: Menarche at age 10. First Full-Term at age 27. Premenopausal. Patient has history of breast feeding. Currently using Hormonal Contraceptives, starting at age 14. 2001, Bilateral Reduction. 01/21/2013, Benign Cyst Aspiration on the left side. Paternal grandmother had breast cancer, age 60. Maternal grandfather had breast cancer, age 50. Last menstrual period: 08/12/2024 Risk Values: Shaniqua 5 year model risk: 0.7%. NCI Lifetime model risk: 11.0%. Prior Study Comparison: 04/04/2023 Bilateral MG 3D screening mammo w/cad, [facility]. 04/16/2023 Left MG 3D work up w/cad LT, [facility]. 06/25/2023 Left MG 3D diag mammo w/cad LT, [facility]. Tissue Density: There are scattered areas of fibroglandular density. Findings: Analyzed By CAD. Right breast: There is no suspicious group of microcalcifications or new suspicious mass. Left breast: There is no suspicious group of microcalcifications or new suspicious mass. Overall Assessment: Negative, BI-RAD 1 Management: Screening Mammogram of both breasts in [address] [facility] will attempt to contact patient to return for supplemental views and ultrasound if indicated. Patient should continue monthly self-breast exams. A clinical breast exam by your physician is recommended on an annual basis. This exam should not preclude additional follow-up of suspicious palpable abnormalities. Note on Shaniqua scores and lifetime risk: 1. A Shaniqua score greater than 3% is considered moderate risk. If this is the case, consider specialist referral to assess eligibility for a risk reducing agent. 2. If overall lifetime risk for the development of breast cancer is 20% or higher, the patient may qualify for future screening with alternating mammogram and breast MRI. [facility], , 09/07/2024 12:00 PM. Electronically signed and approved by: Olvin Price DO
== END | disposition home or self-care (01) ==
LOC: RADMAMWWP 09:13
PROVIDERS: ATTEND Obstetrics & Gynecology
DX: Z12.31 Encounter for screening mammogram for malignant neoplasm of breast (principal); R92.323 Mammographic fibroglandular density, bilateral breasts; Z80.3 Family history of malignant neoplasm of breast; Z79.3 Long term (current) use of hormonal contraceptives
CPT/HCPCS: 77063; 77067